=== PATIENT | male | born 1940 | race Two or more races ===

== ENCOUNTER 2019-07-14 21:46 | Emergency (ER) | payer OTHER ==
[~2019-07-14] VITALS: Ht 172.7 cm; Wt 111.1 kg
[2019-07-14] MEDS ORDERED: COUMADIN5 MG (21:51)
[2019-07-14] MEDS ORDERED: METOPROLOL ER-1 EAC1 (21:51)
[2019-07-14] MEDS ORDERED: JANUMET 50-5001 EACH (21:52)
[2019-07-14] MEDS ORDERED: ZESTRIL5 MG (21:52)
[2019-07-14] MEDS ORDERED: GABAPENTIN800 MG (21:52)
[2019-07-14] MEDS ORDERED: ZOCOR20 MG (21:52)
== END 2019-07-15 01:11 | disposition home or self-care (01) ==
LOC: ER 21:46
DX: J40 Bronchitis, not specified as acute or chronic (principal); J06.9 Acute upper respiratory infection, unspecified; J02.9 Acute pharyngitis, unspecified

== ENCOUNTER 2020-09-06 09:04 | Outpatient (CLI) | payer OTHER ==
[~2020-09-06 09:04] MED LIST: COUMADIN5 MG; GABAPENTIN800 MG; JANUMET 50-5001 EACH; METOPROLOL ER-1 EAC1; ZESTRIL5 MG; ZOCOR20 MG
== END 2020-09-06 09:23 | disposition home or self-care (01) ==
LOC: TOM 09:04
DX: N28.89 Other specified disorders of kidney and ureter (principal); C22.7 Other specified carcinomas of liver; K44.9 Diaphragmatic hernia without obstruction or gangrene; K57.90 Diverticulosis of intestine, part unspecified, without perforation or abscess without bleeding

== ENCOUNTER 2021-03-12 08:00 | Outpatient (CLI) | payer OTHER | END 2021-03-12 08:30 | disposition home or self-care (01) | LOC: PPH VACUNA 08:00 | DX: Z23 Encounter for immunization (principal) ==

== ENCOUNTER 2021-03-21 07:44 | Outpatient (CLI) | payer OTHER | END 2021-03-21 07:50 | disposition home or self-care (01) | LOC: RX STUDY 07:44 | PROVIDERS: ATTEND Internal Medicine Gastroenterology | DX: M43.17 Spondylolisthesis, lumbosacral region (principal); R13.19 Other dysphagia; M54.5 Low back pain ==

== ENCOUNTER 2021-06-04 08:47 | Outpatient (CLI) | payer OTHER | END 2021-06-04 08:54 | disposition home or self-care (01) | LOC: SONOGRAMA 08:47 | PROVIDERS: ATTEND Internal Medicine Hepatology | DX: K76.0 Fatty (change of) liver, not elsewhere classified (principal); R22.0 Localized swelling, mass and lump, head ==

== ENCOUNTER 2022-01-21 12:10 | Outpatient (CLI) | payer OTHER | END 2022-01-21 12:27 | disposition home or self-care (01) | LOC: PPH VACUNA 12:10 | PROVIDERS: ATTEND Emergency Medicine Pediatric Emergency Medicine | DX: Z23 Encounter for immunization (principal) ==

== ENCOUNTER 2024-10-06 07:36 | Outpatient (CLI) | payer OTHER | END 2024-10-06 07:42 | disposition home or self-care (01) | LOC: SONOGRAMA 07:36 | PROVIDERS: ATTEND Internal Medicine Nephrology | DX: K76.0 Fatty (change of) liver, not elsewhere classified (principal) ==

== ENCOUNTER 2025-03-15 11:15 | Outpatient (CLI) | payer OTHER | END 2025-03-15 11:27 | disposition home or self-care (01) | LOC: MRI 11:15 | PROVIDERS: ATTEND Internal Medicine Nephrology | DX: S06.300A Unspecified focal traumatic brain injury without loss of consciousness, initial encounter (principal); X58.XXXA Exposure to other specified factors, initial encounter; Y93.9 Activity, unspecified; Y92.9 Unspecified place or not applicable; Y99.9 Unspecified external cause status | CPT/HCPCS: 70551 ==